=== PATIENT | male | born 1985 | race Caucasian/White ===

== ENCOUNTER → 2020-09-08 10:55 | Outpatient (CLI) | payer OTHER, SELFPAY ==
--- NOTE | ~2020-09-08 | MR_ITS ---
EXAMINATION: MR lumbar spine wo [facility] EXAM DATE: 09/08/2020 11:31 INDICATION: Chronic bilateral low back pain without sciatica. TECHNIQUE: Multi-sequential, multiplanar MR images of the lumbar spine were obtained without contrast . Sagittal T1, T2, T2 fat saturation images. Axial T2 weighted images. There is no prior study for comparison. FINDINGS: Mild to moderate disc disease at L4-5, mild at L5-S1. The conus medullaris terminates at th e T12-L1 level and has normal signal intensity and morphology. Paraspinal soft tissue is unremarkabl e. The vertebral bodies are aligned in the AP dimension. There are no suspicious marrow signal abnorm alities. Level by level evaluation: T12-L1: Disc does not extend beyond the endplate margin. Facet arthropathy: None. Neural foraminal stenosis: No stenosis. Central canal stenosis: No stenosis. L1-L2: There is a mild diffuse disc bulge. Facet arthropathy: Mild. Neural foraminal stenosis: No stenosis. Central canal stenosis: No stenosis. L2-L3: There is a mild diffuse disc bulge. Facet arthropathy: Mild. Neural foraminal stenosis: No stenosis. Central canal stenosis: No stenosis. L3-L4: There is a mild diffuse disc bulge. Facet arthropathy: Mild. Neural foraminal stenosis: No stenosis. Central canal stenosis: No stenosis. L4-L5: There is a moderate diffuse disc bulge asymmetric to the left, causing some narrowing of the l eft lateral recess. Facet arthropathy: Mild. Neural foraminal stenosis: Mild to moderate left, mild right. Central canal stenosis: Mild to moderate. L5-S1: There is a mild diffuse disc bulge. Facet arthropathy: Mild. Neural foraminal stenosis: Mild to moderate bilateral. Central canal stenosis: Mild. IMPRESSION: 1. Mild to moderate lower lumbar spondylosis. Reviewed, dictated and finalized at location B.
--- NOTE | ~2020-09-08 | XR_ITS ---
EXAMINATION: XR ankle LT min 3V DATE: 09/08/2020 12:07 INDICATION: Throbbing aching pain at the medial left ankle TECHNIQUE: Anteroposterior, oblique, mortise, and lateral views of the left ankle were obtained. COMPARISON: None. FINDINGS: Alignment is normal. No fracture. Joint spaces are well maintained. No ankle joint effusion. The so ft tissues are unremarkable. IMPRESSION: 1. Negative left ankle radiographs. Reviewed, dictated and finalized at location A.
== END ==
PROVIDERS: PCP Family Medicine; Visit Provider Family Medicine
DX: M54.5 Low back pain (principal); G89.29 Other chronic pain; M70.972 Unspecified soft tissue disorder related to use, overuse and pressure, left ankle and foot; M47.816 Spondylosis without myelopathy or radiculopathy, lumbar region
CPT/HCPCS: 72148; 73610

== ENCOUNTER → 2022-02-22 10:54 | Outpatient (CLI) | payer OTHER, SELFPAY ==
--- NOTE | ~2022-02-22 | MR_ITS ---
EXAMINATION: MR ankle LT wo/w con DATE: 02/22/2022 11:46 INDICATION: Ganglion cyst with painful lump at the posterior medial left ankle. TECHNIQUE: Magnetic resonance imaging (MRI) of the left ankle was performed without intravenous contr ast. Sequences included axial, sagittal and coronal PD-weighted FS FSE, axial T2-weighted FS FSE, sag ittal and coronal PD-weighted FS FSE, axial T1-weighted FS FSE and postcontrast axial, sagittal and c oronal T1-weighted FS FSE. COMPARISON: Left ankle radiographs dated 09/08/2020 FINDINGS: Medial ankle ligaments: Deep and superficial deltoid ligaments as well as the spring ligament are normal. Lateral ankle ligaments: The anterior and posterior inferior tibiofibular ligaments are normal. The anterior talofibular, calc aneofibular and posterior talofibular ligaments are normal. Tendons: Achilles tendon is normal. The peroneus longus and brevis tendons are normal. The tibialis anterior a nd extensor hallucis longus and extensor digitorum longus tendons are normal. Small amount of fluid a long the normal tibialis posterior and flexor . Consistent with tenosynovitis. This occurs tendons pa ss along the posterior margin of the medial malleolus and immediately deep to the marker indicating t he site of concern. The flexor hallucis longus tendon is normal. Plantar fascia: The plantar aponeurosis is normal. Bones/other: Bone alignment is normal. There is normal marrow signal throughout. No fracture or pathologic marrow replacing process. Joint spaces appear normal with no erosions or joint effusions. No ganglion cysts or other abnormal fluid collections. No abnormally enhancing lesions identified. IMPRESSION: 1. Mild tenosynovitis along the normal-appearing tibialis posterior and flexor digitorum longus tendo ns centered immediately deep to the marker indicating the lesion of concern. Reviewed, dictated and finalized at location A. DATABASE ADMINISTRATOR IMPRESSION: 1. Mild tenosynovitis along the normal-appearing tibialis posterior and flexor digitorum longus tendons centered immediately deep to the marker indicating the lesion of concern.
== END ==
PROVIDERS: PCP Podiatrist Foot & Ankle Surgery; Visit Provider Podiatrist Foot & Ankle Surgery
DX: M67.472 Ganglion, left ankle and foot (principal); M65.872 Other synovitis and tenosynovitis, left ankle and foot
CPT/HCPCS: 73723; A9577

== ENCOUNTER 2023-08-04 12:36 | Outpatient (CLI) | payer OTHER, SELFPAY ==
--- NOTE | ~2023-08-04 | MR_ITS ---
EXAMINATION: MR lumbar spine wo con DATE: 08/04/2023 13:08 INDICATION: Chronic low back pain with sciatica. TECHNIQUE: Magnetic resonance imaging (MRI) of the lumbar spine was performed without intravenous con trast. Sequences included sagittal T2-weighted FSE, sagittal T2-weighted FS FSE, sagittal T1-weighted FSE, and axial T2-weighted FSE. COMPARISON: Lumbar spine MRI 09/08/20 FINDINGS: Bone alignment is normal. There is mild chronic anterior wedging of T12 and L1 vertebral ambrose dies. There are Schmorl's nodes at many levels. There is mildly decreased disc height at L3-L4, L4-L5 , and L5-S1. The distal spinal cord signal intensity is normal. The conus medullaris is at L1-L2. The following disc levels are specifically discussed: L1-L2: There is a central protrusion. There is mild bilateral facet joint osteoarthritis. There is no neural foraminal stenosis. There is mild central canal stenosis. L2-L3: There is a central protrusion. There is mild bilateral facet joint osteoarthritis. There is no neural foraminal stenosis. There is mild central canal stenosis. L3-L4: There is a left central protrusion. There is mild lateral facet joint osteoarthritis. There is no neural foraminal stenosis. There is mild central canal stenosis. L4-L5: The disc is bulging and has an annular fissure. There is mild bilateral facet joint osteoarthr itis. There is mild right and moderate left neural foraminal stenosis. There is mild central canal st enosis. L5-S1: The disc is bulging and has an annular fissure. There is moderate bilateral facet joint osteoa rthritis. There is mild bilateral neural foraminal stenosis. There is mild central canal stenosis. IMPRESSION: 1. Moderate lower lumbar spondylosis, stable from 09/08/2020. Reviewed, dictated and finalized at location A.
== END 2023-08-04 12:37 ==
DX: M43.06 Spondylolysis, lumbar region (principal); G89.29 Other chronic pain
CPT/HCPCS: 72148